=== PATIENT | male | born 1960 | race Caucasian/White ===

== ENCOUNTER 2020-10-16 20:50 | Emergency (ER) | payer OTHER ==
[2020-10-16 20:57] VITALS: BP 118/80; PULSE 72; TEMP 98.2; BMI 32.3
[2020-10-16] MEDS ORDERED: DIPHTH,PERTUSS(ACELL),TET 0.5 ML DISP.SYRIN IM ONE ×2 (21:33→21:55)
[2020-10-16] MEDS ORDERED: ACETAMINOPHEN 500 MG TABLET (FP) PO ONE (23:18)
[2020-10-16] MEDS ORDERED: ACETAMINOPHEN 500 MG TABLET (FP) ONE (23:40)
== END 2020-10-17 00:30 | disposition home or self-care (01) ==
LOC: JERFT 20:50
PROC: 08QPXZZ Repair Left Upper Eyelid, External Approach (ICD-10-PCS; principal; 2020-10-16)
PROC: 3E0234Z Introduction of Serum, Toxoid and Vaccine into Muscle, Percutaneous Approach (ICD-10-PCS; 2020-10-16)
DX: S02.32XA Fracture of orbital floor, left side, initial encounter for closed fracture (principal); S01.112A Laceration without foreign body of left eyelid and periocular area, initial encounter
CPT/HCPCS: 70450-TC; 70486-TC; 90715; 99284-25